=== PATIENT | female | born 1945 | race Caucasian/White ===

== ENCOUNTER → 2019-08-18 08:07 | Outpatient (CLI) | payer MEDICARE, OTHER, SELFPAY ==
--- NOTE | 2019-08-18 | DI.ECHO.S_ITS ---
[facility]---------+ [facility] +---------+ : : [address] : [address] : : : : [id number] : : : : Phone: [phone]---------+ Echocardiogram Report + + :Name: KEITH RAMIREZ Study Date: 08/18/2019 Height: 65 in : :[facility] Weight: 216 lb : : Gender: Female BSA: 2.0 m2 : :: 1945 Age: 74 yrs BP: 142/88 mmHg: :Reason For Study: SYNCOPE : : Performed By: Cynthia Valenzuela : :Referring: ADRIANA PAEZ L : + + Interpretation Summary The left ventricular ejection fraction is normal. There are no obvious focal wall motion abnormalities noted but poor endocardial definition reduces the sensitivity for the detection of such. Diastolic parameters suggest a relaxation abnormality of the left ventricle, consistent with probable normal filling pressures. The right ventricle is grossly normal size. The right ventricular systolic function is normal. [id number] posterior mitral annular calcification without any hemodynamically significant mitral stenosis or regurgitation. The ascending aorta diameter is mildly increased at 4 cm. There is no prior echocardiogram noted for this patient. Procedure: The study quality was technically adequate. There is no prior echocardiogram noted for this patient. A two-dimensional transthoracic echocardiogram with color flow and Doppler was performed. The patient was in normal sinus rhythm during the exam. The patient had frequent PVCs during the exam. Left Ventricle: The left ventricle is normal in size. Left ventricular wall thickness is mildly increased. Proximal septal thickening is noted. The ejection fraction is estimated to be 50-55%. The left ventricular ejection fraction is normal. There is a mild dyssynchronous contraction pattern, consistent with a conduction abnormality. There are no obvious focal wall motion abnormalities noted but poor endocardial definition reduces the sensitivity for the detection of such. Diastolic parameters suggest a relaxation abnormality of the left ventricle, consistent with probable normal filling pressures. Right Ventricle: The right ventricle is not well visualized. The right ventricle is grossly normal size. The right ventricular systolic function is normal. Atria: Both atria are normal in size. There is no Doppler evidence for an interatrial shunt. Mitral Valve: There is mild mitral annular calcification. The mitral valve leaflets appear mildly thickened, but open well. There is trace mitral regurgitation. Aortic Valve: The aortic valve is trileaflet. The aortic valve opens well. There is mild aortic valve sclerosis. There is no aortic valve stenosis. No aortic regurgitation is present. Tricuspid Valve: The tricuspid valve is normal in structure and function. There is mild tricuspid regurgitation. Pulmonary artery pressures cannot be estimated because of the lack of a measurable TR jet velocity but the IVC suggests a CVP of around 3 mmHg. Doppler findings do not suggest pulmonary hypertension. Pulmonic Valve: The pulmonic valve is not well visualized. There is no pulmonic valvular regurgitation. Great Vessels: The aortic root is borderline dilated. The ascending aorta is mildly enlarged. The aortic arch is mildly enlarged. The IVC is of normal diameter and collapses greater than 50% with a sniff. This suggests a low right atrial pressure of 3 mm Hg. Pericardium/ Pleura There is no pericardial effusion. There is an anterior echo-free space consistent with a fat pad. MMode/2D Measurements & Calculations LVIDd: 4.6 cm LVOT diam: 2.0 cm LVIDs: 3.4 cm Ao root diam: 3.8 cm FS: 26.3 % asc Aorta Diam: 4.0 cm EPSS: 0.57 cm Ao Arch Diam (Prox Trans): 3.7 cm IVSd: 1.1 cm LVPWd: 0.90 cm LV sánchez. diameter/BSA (cm/m^2): 2.2 LV sys. diameter/BSA (cm/m^2): 1.7 LA dimension: 1.4 cm RA long axis: 4.2 cm LA A2 area: 16.0 cm2 RA area: 13.2 cm2 LA A4 area: 15.2 cm2 RA vol: 35.4 ml LA length (vol): 4.6 cm RA : 17.3 ml/m2 LA vol: 44.6 ml IVC diam: 0.91 cm LA vol index: 21.8 ml/m2 TAPSE: 1.8 cm Doppler Measurements & Calculations Ao V2 max: 112.5 cm/sec LVOT Max Shahid: 85.6 cm/sec Ao V2 mean: 79.0 cm/sec LV V1 max P.9 mmHg Ao max P.1 mmHg LV V1 VTI: 14.9 cm Ao mean P.8 mmHg SYDNEY(I,D): 2.5 cm2 Ao V2 VTI: 19.1 cm SYDNEY(V,D): 2.4 cm2 sev ratio: 0.78 SYDNEY indexed to BSA (cm^2/m^2): 1.2 MV E max shahid: 51.1 cm/sec TR max shahid: 226.8 cm/sec MV A max shahid: 76.0 cm/sec TR max P.7 mmHg MV E/A: 0.67 PA V2 max: 70.5 cm/sec Med Peak E' Shahid: 6.8 cm/sec PA V2 mean: 47.2 cm/sec E/E' med: 7.5 PA mean P.0 mmHg Lat Peak E' Shahid: 9.4 cm/sec PA pr(Accel): 30.9 mmHg E/E' lat: 5.4 E/e' average: 6.5 MV dec time: 0.24 sec MV P1/2t: 66.4 msec MV P1/2t max shahid: 50.5 cm/sec SV(LVOT): 47.6 ml MVA(P1/2t): 3.3 cm2 Electronically signed by: Naiv Gold M.D. on Reading Physician:08/18/2019 04:18 PM
--- NOTE | 2019-08-18 | DI.MG.S_ITS ---
BILATERAL DIGITAL SCREENING MAMMOGRAM 3D/2D WITH CAD: 08/18/2019 CLINICAL: Routine screening. Comparison is made to exams dated: 09/26/2017 mammogram, 09/20/2016 mammogram, and 09/07/2014 mammogram - [facility]. There are scattered fibroglandular elements in both breasts. Current study was also evaluated with a Computer Aided Detection (CAD) system. There is a benign mass in the right breast. No significant masses, calcifications, or other findings are seen in either breast. There has been no significant interval change. IMPRESSION: There is no mammographic evidence of malignancy. A 1 year screening mammogram is recommended. This exam was interpreted at Station ID: [id number]. NOTE: For mammograms, a report in lay terms will be sent to the patient. Approximately 15% of breast malignancies will not be visualized mammographically. In the management of a palpable breast mass, a negative mammogram must not discourage biopsy of a clinically suspicious lesion. Electronically Signed By: Hu sanchez/mimi:08/19/2019 08:55:01 letter sent: Normal Exam ACR BI-RADS Category 2: Benign Finding(s) 3342F
== END ==
PROVIDERS: Referring Provider Internal Medicine; Visit Provider Internal Medicine
DX: I08.2 Rheumatic disorders of both aortic and tricuspid valves (principal); R55 Syncope and collapse; Z12.31 Encounter for screening mammogram for malignant neoplasm of breast; Z78.0 Asymptomatic menopausal state
CPT/HCPCS: 77063; 77067; 93306